=== PATIENT | female | born 1940 | race Caucasian/White ===

== ENCOUNTER 2019-03-12 10:30 | Emergency (ER) | payer MEDICARE, MEDICAID ==
[~2019-03-12] VITALS: Ht 149.9 cm; Wt 32.7 kg
[~2019-03-12 10:30] MED LIST: CALC-839 PO; DOCU100C40 PO; DULR RC; FLUO-1; FLUO-186 PO; IBUP-1985 PO; OLAN2.5T3 PO; OSC500T PO; POLY17PO10 PO; RALO60TA55 PO; TEG100T PO; VAL5T PO; [UNRECOGNIZED DRUG - CODE] RC; [UNRECOGNIZED DRUG - CODE] RIGHT EAR; [UNRECOGNIZED DRUG - CODE] TP
[2019-03-12 11:02] VITALS: BP 133/90
[2019-03-12 11:50] LABS: BASOPHILS % (AUTO) 0.5 % (0-1); EOSINOPHILS % (AUTO) 0.1 % (0-6); HEMATOCRIT 45.2 % (35.0-45.0); HEMOGLOBIN 15.3 g/dl (12.0-16.0); LYMPHOCYTES # (AUTO) 1.5 X10'3 (1.1-4.8); LYMPHOCYTES % (AUTO) 22.5 % (21-51); MEAN CORPUSCULAR HEMOGLOBIN 31.4 PG (27.0-31.0); MEAN CORPUSCULAR HGB CONC 33.9 g/dL (33.0-36.5); MEAN CORPUSCULAR VOLUME 92.7 FL (78-98); MEAN PLATELET VOLUME 7.5 FL (7.4-10.4); MONOCYTES # (AUTO) 0.6 X10'3 (0-0.9); MONOCYTES % (AUTO) 8.5 % (2-12); NEUTROPHILS # (AUTO) 4.5 X10'3 (1.8-7.7); NEUTROPHILS % (AUTO) 68.4 % (42-75); PLATELET COUNT 202 X10'3 (140-440); RED BLOOD COUNT 4.88 X10'6 (4.20-5.60); RED CELL DISTRIBUTION WIDTH 12.6 % (11.5-14.5); WHITE BLOOD COUNT 6.7 X10'3 (4.5-11.0)
[2019-03-12 12:00] LABS: PARTIAL THROMBOPLASTIN TIME 28 SECONDS (22-32)
[2019-03-12 12:15] LABS: ALANINE AMINOTRANSFERASE 23 U/L (12-78); ALBUMIN 3.7 G/DL (3.4-5.0); ALBUMIN/GLOBULIN RATIO 1.1 (1.1-1.5); ALKALINE PHOSPHATASE 115 IU/L (46-116); ANION GAP 5 (8-16); ASPARTATE AMINO TRANSFERASE 19 U/L (10-37); BILIRUBIN,TOTAL 0.3 MG/DL (0.1-1.0); BLOOD UREA NITROGEN 22 MG/DL (7-18); BUN/CREATININE RATIO 31.4 (6.6-38.0); CALCIUM 9.4 MG/DL (8.5-10.1); CHLORIDE 112 MMOL/L (99-107); GLUCOSE 101 MG/DL (70-104); POTASSIUM 3.7 MMOL/L (3.5-5.1); SODIUM 149 MMOL/L (135-145); TOTAL CARBON DIOXIDE 32.3 MMOL/L (24-32); TOTAL PROTEIN 7.2 G/DL (6.4-8.2); eGFR 81 ML/MIN
== END 2019-03-12 15:35 | disposition home or self-care (01) ==
LOC: ER 10:31
DX: E87.0 Hyperosmolality and hypernatremia (principal); F79 Unspecified intellectual disabilities; Z79.899 Other long term (current) drug therapy
CPT/HCPCS: 36415; 80053; 85025; 85610; 85730; 93005; 99284

== ENCOUNTER 2019-07-01 23:38 | Inpatient (IN) | payer MEDICARE, MEDICAID ==
[~2019-07-01] VITALS: Ht 152.4 cm; Wt 37.6 kg
[2019-07-02] MEDS ORDERED: normal saline 1000ML IV soln IV ONE (00:50)
[2019-07-02] MEDS ORDERED: bisacodyl 10mg suppository rectal RC STA (00:52)
[2019-07-02 01:06] LABS: BASOPHILS % (AUTO) 0.2 % (0-1); EOSINOPHILS % (AUTO) 0.1 % (0-6); HEMATOCRIT 36.3 % (35.0-45.0); HEMOGLOBIN 12.8 g/dl (12.0-16.0); LYMPHOCYTES # (AUTO) 0.7 X10'3 (1.1-4.8); LYMPHOCYTES % (AUTO) 7.8 % (21-51); MEAN CORPUSCULAR HEMOGLOBIN 32.7 PG (27.0-31.0); MEAN CORPUSCULAR HGB CONC 35.1 g/dL (33.0-36.5); MONOCYTES # (AUTO) 0.8 X10'3 (0-0.9); MONOCYTES % (AUTO) 8.2 % (2-12); NEUTROPHILS # (AUTO) 7.7 X10'3 (1.8-7.7); NEUTROPHILS % (AUTO) 83.7 % (42-75); PLATELET COUNT 206 X10'3 (140-440); RED CELL DISTRIBUTION WIDTH 12.2 % (11.5-14.5); WHITE BLOOD COUNT 9.2 X10'3 (4.5-11.0)
[2019-07-02 01:14] LABS: ALANINE AMINOTRANSFERASE 15 U/L (12-78); ALBUMIN 3.1 G/DL (3.4-5.0); ALBUMIN/GLOBULIN RATIO 0.9 (1.1-1.5); ALKALINE PHOSPHATASE 100 IU/L (46-116); ANION GAP 4 (8-16); ASPARTATE AMINO TRANSFERASE 17 U/L (10-37); BILIRUBIN,TOTAL 0.1 MG/DL (0.1-1.0); BLOOD UREA NITROGEN 26 MG/DL (7-18); BUN/CREATININE RATIO 43.3 (6.6-38.0); CALCIUM 7.9 MG/DL (8.5-10.1); CHLORIDE 105 MMOL/L (99-107); CREATINE KINASE 46 U/L (26-192); GLUCOSE 86 MG/DL (70-104); POTASSIUM 4.2 MMOL/L (3.5-5.1); SODIUM 139 MMOL/L (135-145); TOTAL CARBON DIOXIDE 30.5 MMOL/L (24-32); TOTAL PROTEIN 6.5 G/DL (6.4-8.2); eGFR > 90 ML/MIN
[2019-07-02] MEDS: mineral oil 133ml enema RC PRN (02:25)
--- NOTE | 2019-07-02 02:42 | NUR ---
PATIENT HAS RECEIVED, DOCULAX SUPPOSITORY AND MINERAL OIL ENEMA. PATIENT HAS HAS SMEAR BM AND WAS UNABLE TO RETAIN THE ENEMA. PATIENT IS RELEASING LARGE AMOUNTS OF FLATUS
[2019-07-02] MEDS ORDERED: SERT25TA PO (03:26)
[2019-07-02] MEDS ORDERED: OMEP40CA13 PO (03:26)
[2019-07-02] MEDS ORDERED: LORA10TA7 PO (03:26)
[2019-07-02] MEDS ORDERED: FERR325T28 PO (03:26)
[2019-07-02] MEDS ORDERED: HYDROcodone/acetaminophen 5mg/325mg tablet PO PRN (04:15)
[2019-07-02] MEDS ORDERED: polyethylene glycol 3350 17gm powd pack PO SCH (04:15)
[2019-07-02] MEDS ORDERED: ondansetron/PF 4mg/2ml inj IV PRN (04:15)
[2019-07-02] MEDS ORDERED: mag hydrox/Alum hydrox/simeth 30ml oral suspension PO PRN (04:15)
--- NOTE | 2019-07-02 05:45 | NUR ---
Received report from Jason HUERTA in the ER. Pt arrived via gurney on 2L O2 with caregiver at bedside. No signs of distress, will continue to monitor.
[2019-07-02 05:56] VITALS: BP 101/59
--- NOTE | 2019-07-02 06:42 | NUR ---
Problems reprioritized. Patient report given, questions answered & plan of care reviewed with Makenzie HUERTA.
--- NOTE | 2019-07-02 06:56 | NUR ---
Patient in room [facility]. I have received report from Marie HUERTA and had the opportunity to ask questions and assume patient care.
[2019-07-02 08:00] VITALS: BP 123/73
[2019-07-02] MEDS: pantoprazole 40mg Tablet.DR PO SCH (09:06)
[2019-07-02] MEDS: docusate sod 100mg capsule PO SCH ×2 (09:06→19:29)
[2019-07-02] MEDS: sertraline 50mg tablet PO SCH (09:07)
[2019-07-02] MEDS: OLANZapine 2.5MG tablet PO SCH (09:07)
[2019-07-02] MEDS: acetaminophen 650mg rectal suppository RC SCH ×3 (09:08→19:29)
[2019-07-02] MEDS: carBAMazepine 100mg chewable tablet PO SCH ×2 (09:09→19:35)
--- NOTE | 2019-07-02 11:59 | NUR ---
Pt with low BMI of 17.1 using scaled weight of 37.2 kg. Per records pt weighed 32.7 kg 03/12/19 using standing scale. No apparent wt loss at this time and pt is 91% IBW. Pt currently on full liquid diet, pending documentation of PO intake. Pt just admitted, pending physical assessment. No edema documented in H&P. Pt developmentally delayed and lives in assisted living per H&P. No concerns for malnutrition at this time. Will continue to follow. Addendum: 07/02/19 at [address] Amended: Links added.
[2019-07-02] MEDS: normal saline 1000ml 1,000 ML IV SCH (13:13)
[2019-07-02] MEDS: magnesium hydroxide 30ml (MOM) UD suspension PO PRN (14:53)
--- NOTE | 2019-07-02 18:06 | NUR ---
caregiver present in room for entire shift. patient appears stable. All cares given .
--- NOTE | 2019-07-02 18:40 | NUR ---
Patient in room [facility]. I have received report from DEANNA Fuchs and had the opportunity to ask questions and assume patient care.
--- NOTE | 2019-07-02 18:43 | NUR ---
Problems reprioritized. Patient report given, questions answered & plan of care reviewed with Jerad HUERTA.
[2019-07-02 19:00] VITALS: BP 136/89
[2019-07-03] VITALS: BP 101/61
[2019-07-03] MEDS: normal saline 1000ml 1,000 ML IV SCH ×3 (02:42→17:28)
[2019-07-03] MEDS: acetaminophen 650mg rectal suppository RC SCH ×4 (02:42→21:43)
[2019-07-03 06:15] LABS: BASOPHILS % (AUTO) 0.6 % (0-1); EOSINOPHILS % (AUTO) 0 % (0-6); HEMATOCRIT 36.9 % (35.0-45.0); HEMOGLOBIN 12.8 g/dl (12.0-16.0); LYMPHOCYTES % (AUTO) 16.3 % (21-51); MEAN CORPUSCULAR HEMOGLOBIN 32.8 PG (27.0-31.0); MEAN CORPUSCULAR HGB CONC 34.6 g/dL (33.0-36.5); MEAN CORPUSCULAR VOLUME 94.8 FL (78-98); MEAN PLATELET VOLUME 7.1 FL (7.4-10.4); MONOCYTES # (AUTO) 0.5 X10'3 (0-0.9); MONOCYTES % (AUTO) 8.3 % (2-12); NEUTROPHILS # (AUTO) 4.6 X10'3 (1.8-7.7); NEUTROPHILS % (AUTO) 74.8 % (42-75); PLATELET COUNT 173 X10'3 (140-440); RED BLOOD COUNT 3.89 X10'6 (4.20-5.60); WHITE BLOOD COUNT 6.2 X10'3 (4.5-11.0)
--- NOTE | 2019-07-03 06:35 | NUR ---
Problems reprioritized. Patient report given, questions answered & plan of care reviewed with DEANNA Fuchs, and DEANNA Feng.
[2019-07-03 06:37] LABS: ALANINE AMINOTRANSFERASE 15 U/L (12-78); ALBUMIN 2.7 G/DL (3.4-5.0); ALBUMIN/GLOBULIN RATIO 0.8 (1.1-1.5); ALKALINE PHOSPHATASE 95 IU/L (46-116); ANION GAP 4 (8-16); ASPARTATE AMINO TRANSFERASE 25 U/L (10-37); BILIRUBIN,TOTAL 0.2 MG/DL (0.1-1.0); BLOOD UREA NITROGEN 10 MG/DL (7-18); BUN/CREATININE RATIO 20.8 (6.6-38.0); CALCIUM 7.8 MG/DL (8.5-10.1); CHLORIDE 109 MMOL/L (99-107); CREATININE 0.48 MG/DL (0.40-0.90); GLUCOSE 80 MG/DL (70-104); POTASSIUM 4.4 MMOL/L (3.5-5.1); SODIUM 141 MMOL/L (135-145); TOTAL CARBON DIOXIDE 27.7 MMOL/L (24-32); TOTAL PROTEIN 5.9 G/DL (6.4-8.2); eGFR > 90 ML/MIN
--- NOTE | 2019-07-03 06:43 | NUR ---
Patient in room [facility]. I have received report from Jerad HUERTA and had the opportunity to ask questions and assume patient care.
[2019-07-03 07:31] VITALS: BP 126/72
[2019-07-03] MEDS: carBAMazepine 100mg chewable tablet PO SCH ×2 (08:00→21:43)
[2019-07-03] MEDS: docusate sod 100mg capsule PO SCH ×2 (09:41→21:42)
[2019-07-03] MEDS: pantoprazole 40mg Tablet.DR PO SCH (09:42)
[2019-07-03] MEDS: sertraline 50mg tablet PO SCH (09:42)
[2019-07-03] MEDS: OLANZapine 2.5MG tablet PO SCH (09:42)
[2019-07-03] MEDS: mineral oil 133ml enema RC PRN (09:53)
--- NOTE | 2019-07-03 11:21 | NUR ---
Spoke with Conservator Elgin over the phone. Elgin stated, "I want to know how the pt is doing because I want her out of the hospital." Explained to Elgin that pt needs to have a bowel movement and may be discharged after that happens. Elgin got very upset and stated, "I will talk to who I need to talk to make a complaint." Tried to ask Elgin if there was something else I could help with and Elgin interrupted and said, "no thanks for the info that you provided." Pt then hung up the phone before anything else could be said. Informed case monitor and charge nurse.
--- NOTE | 2019-07-03 12:30 | NUR ---
Spoke with Corie pereyralive in housekeeper nanny over the phone. [employer] stating she doesnt have staff she is able to send for over the weekend for material handler 2nd shift and would like us to get a sitter order for pt when staff isnt there. Spoke with caregiver at bedside, caregiver stating pt has been trying to crawl out of bed several times today. Nurse has just observed pt sleeping and not trying to get out of bed. Will page MD to get prn sitter order for when Corie pereyra staff unavailable.
[2019-07-03 12:55] VITALS: BP 126/83
--- NOTE | 2019-07-03 18:25 | NUR ---
Problems reprioritized. Patient report given, questions answered & plan of care reviewed with Prudence RN.
[2019-07-03 19:00] VITALS: BP 151/86
[2019-07-03] MEDS: magnesium hydroxide 30ml (MOM) UD suspension PO PRN (21:42)
[2019-07-04] VITALS: BP 143/83
[2019-07-04] MEDS: acetaminophen 650mg rectal suppository RC SCH ×2 (02:53→08:25)
[2019-07-04 05:05] LABS: BASOPHILS % (AUTO) 0.7 % (0-1); EOSINOPHILS % (AUTO) 0 % (0-6); HEMATOCRIT 35.5 % (35.0-45.0); HEMOGLOBIN 12.6 g/dl (12.0-16.0); LYMPHOCYTES # (AUTO) 0.7 X10'3 (1.1-4.8); LYMPHOCYTES % (AUTO) 12.8 % (21-51); MEAN CORPUSCULAR HEMOGLOBIN 32.5 PG (27.0-31.0); MEAN CORPUSCULAR HGB CONC 35.5 g/dL (33.0-36.5); MEAN CORPUSCULAR VOLUME 91.7 FL (78-98); MEAN PLATELET VOLUME 6.8 FL (7.4-10.4); MONOCYTES # (AUTO) 0.4 X10'3 (0-0.9); MONOCYTES % (AUTO) 7.9 % (2-12); NEUTROPHILS # (AUTO) 4.5 X10'3 (1.8-7.7); NEUTROPHILS % (AUTO) 78.6 % (42-75); PLATELET COUNT 212 X10'3 (140-440); RED BLOOD COUNT 3.87 X10'6 (4.20-5.60); WHITE BLOOD COUNT 5.7 X10'3 (4.5-11.0)
[2019-07-04 05:26] LABS: ALANINE AMINOTRANSFERASE 21 U/L (12-78); ALBUMIN 2.8 G/DL (3.4-5.0); ALBUMIN/GLOBULIN RATIO 0.8 (1.1-1.5); ALKALINE PHOSPHATASE 102 IU/L (46-116); ANION GAP 8 (8-16); ASPARTATE AMINO TRANSFERASE 30 U/L (10-37); BILIRUBIN,TOTAL 0.3 MG/DL (0.1-1.0); BLOOD UREA NITROGEN 9 MG/DL (7-18); BUN/CREATININE RATIO 18.4 (6.6-38.0); CALCIUM 7.9 MG/DL (8.5-10.1); CHLORIDE 105 MMOL/L (99-107); CREATININE 0.49 MG/DL (0.40-0.90); GLUCOSE 102 MG/DL (70-104); SODIUM 139 MMOL/L (135-145); TOTAL CARBON DIOXIDE 25.8 MMOL/L (24-32); TOTAL PROTEIN 6.1 G/DL (6.4-8.2); eGFR > 90 ML/MIN
[2019-07-04] MEDS: normal saline 1000ml 1,000 ML IV SCH ×2 (05:52→08:24)
--- NOTE | 2019-07-04 06:30 | NUR ---
Patient in room [facility]. I have received report from Alyssa HUERTA and had the opportunity to ask questions and assume patient care.
--- NOTE | 2019-07-04 06:41 | NUR ---
Problems reprioritized. Patient report given, questions answered & plan of care reviewed with Antionette HUERTA.
[2019-07-04] MEDS: docusate sod 100mg capsule PO SCH ×2 (08:21→19:56)
[2019-07-04] MEDS: pantoprazole 40mg Tablet.DR PO SCH (08:21)
[2019-07-04] MEDS: sertraline 50mg tablet PO SCH (08:21)
[2019-07-04] MEDS: OLANZapine 2.5MG tablet PO SCH (08:22)
[2019-07-04] MEDS: carBAMazepine 100mg chewable tablet PO SCH ×2 (08:25→19:56)
[2019-07-04] MEDS ORDERED: acetaminophen 650mg rectal suppository RC PRN (11:05)
--- NOTE | 2019-07-04 11:09 | NUR ---
Informed that BP this AM was 130/111. No new orders at this time.
--- NOTE | 2019-07-04 11:10 | NUR ---
MD ordered STAT CT of Abdomen after getting occult positive results. cutter grind tool technician stated it would be little while before they can get up here to take pt down on [facility].
[2019-07-04 11:22] VITALS: BP 158/95
[2019-07-04] MEDS ORDERED: diatrozoate meglu/diatrozoate sod (37% iodine) 120ML oral solution ONE (14:32)
[2019-07-04] MEDS ORDERED: iohexol 300mg/ml 100ml inj. ONE (14:34)
[2019-07-04] MEDS ORDERED: methylnaltrexone br 12mg/0.6ml inj***SubQ only SQ SCH (15:39)
[2019-07-04 16:53] LABS: HEMATOCRIT 38.6 % (35.0-45.0); HEMOGLOBIN 13.4 g/dl (12.0-16.0); MEAN CORPUSCULAR HEMOGLOBIN 32.4 PG (27.0-31.0); MEAN CORPUSCULAR HGB CONC 34.7 g/dL (33.0-36.5); MEAN CORPUSCULAR VOLUME 93.3 FL (78-98); MEAN PLATELET VOLUME 6.7 FL (7.4-10.4); PLATELET COUNT 207 X10'3 (140-440); RED BLOOD COUNT 4.13 X10'6 (4.20-5.60); WHITE BLOOD COUNT 5.7 X10'3 (4.5-11.0)
--- NOTE | 2019-07-04 17:00 | NUR ---
Soap suds enema given with no stool results. Patient only had loose watery amount with stool particles in brief. No soft or formed stool seen.
[2019-07-04 18:00] VITALS: BP 130/90
--- NOTE | 2019-07-04 18:04 | NUR ---
Problems reprioritized. Patient report given, questions answered & plan of care reviewed with Prudence RN.
--- NOTE | 2019-07-04 19:16 | NUR ---
Patient in room [facility]. I have received report from Ping HUERTA and had the opportunity to ask questions and assume patient care. Patient has a sitter.
[2019-07-05 00:39] VITALS: BP 155/93
[2019-07-05 06:32] LABS: BASOPHILS # (AUTO) 0.1 X10'3 (0-0.2); BASOPHILS % (AUTO) 0.9 % (0-1); EOSINOPHILS % (AUTO) 0.1 % (0-6); HEMATOCRIT 36.5 % (35.0-45.0); HEMOGLOBIN 12.7 g/dl (12.0-16.0); LYMPHOCYTES # (AUTO) 0.8 X10'3 (1.1-4.8); LYMPHOCYTES % (AUTO) 14.4 % (21-51); MEAN CORPUSCULAR HEMOGLOBIN 32.5 PG (27.0-31.0); MEAN CORPUSCULAR HGB CONC 34.8 g/dL (33.0-36.5); MEAN CORPUSCULAR VOLUME 93.3 FL (78-98); MEAN PLATELET VOLUME 7.1 FL (7.4-10.4); MONOCYTES # (AUTO) 0.5 X10'3 (0-0.9); NEUTROPHILS # (AUTO) 4.1 X10'3 (1.8-7.7); NEUTROPHILS % (AUTO) 74.6 % (42-75); PLATELET COUNT 201 X10'3 (140-440); RED BLOOD COUNT 3.91 X10'6 (4.20-5.60); RED CELL DISTRIBUTION WIDTH 12.1 % (11.5-14.5); WHITE BLOOD COUNT 5.5 X10'3 (4.5-11.0)
--- NOTE | 2019-07-05 06:37 | NUR ---
Problems reprioritized. Patient report given, questions answered & plan of care reviewed with Gisel HUERTA.Patient is resting and has not have a bowel movement yet. Pt passing gas and the abdomen is soft.
--- NOTE | 2019-07-05 06:39 | NUR ---
Patient in room [facility]. I have received report from Alyssa HUERTA and had the opportunity to ask questions and assume patient care.
[2019-07-05 06:50] LABS: ALANINE AMINOTRANSFERASE 18 U/L (12-78); ALBUMIN 2.9 G/DL (3.4-5.0); ALBUMIN/GLOBULIN RATIO 0.9 (1.1-1.5); ALKALINE PHOSPHATASE 97 IU/L (46-116); ANION GAP 8 (8-16); ASPARTATE AMINO TRANSFERASE 29 U/L (10-37); BILIRUBIN,TOTAL 0.3 MG/DL (0.1-1.0); BLOOD UREA NITROGEN 7 MG/DL (7-18); BUN/CREATININE RATIO 18.4 (6.6-38.0); CALCIUM 8.1 MG/DL (8.5-10.1); CHLORIDE 106 MMOL/L (99-107); CREATININE 0.38 MG/DL (0.40-0.90); GLUCOSE 81 MG/DL (70-104); POTASSIUM 3.6 MMOL/L (3.5-5.1); SODIUM 137 MMOL/L (135-145); TOTAL CARBON DIOXIDE 22.6 MMOL/L (24-32); TOTAL PROTEIN 6.2 G/DL (6.4-8.2); eGFR > 90 ML/MIN
[2019-07-05 07:00] VITALS: BP 118/65
[2019-07-05] MEDS: pantoprazole 40mg Tablet.DR PO SCH (09:02)
[2019-07-05] MEDS: docusate sod 100mg capsule PO SCH (09:02)
[2019-07-05] MEDS: sertraline 50mg tablet PO SCH (09:02)
[2019-07-05] MEDS: OLANZapine 2.5MG tablet PO SCH (09:03)
[2019-07-05] MEDS: carBAMazepine 100mg chewable tablet PO SCH ×2 (09:03→19:50)
[2019-07-05 11:00] VITALS: BP 143/82
--- NOTE | 2019-07-05 11:01 | NUR ---
Soap suds enema given, caregiver present at bedside. Patient tolerated well. Small, loose, green stool noted. Dr. Funez notified and also saw the stool
[2019-07-05] MEDS ORDERED: HYDROcodone/acetaminophen 5mg/325mg tablet PO PRN (14:30)
[2019-07-05] MEDS: mineral oil 133ml enema RC SCH (15:22)
--- NOTE | 2019-07-05 18:50 | NUR ---
Patient in room [facility]. I have received report from DEANNA Batres and had the opportunity to ask questions and assume patient care.
--- NOTE | 2019-07-05 18:52 | NUR ---
Problems reprioritized. Patient report given, questions answered & plan of care reviewed with Jerad HUERTA.
[2019-07-05] MEDS ORDERED: magnesium citrate 296ml oral solution PO ONE (19:00)
[2019-07-06 00:33] VITALS: BP 127/75
[2019-07-06] MEDS: normal saline 1000ml 1,000 ML IV SCH ×2 (01:42→22:56)
--- NOTE | 2019-07-06 06:20 | NUR ---
Patient in room [facility]. I have received report from DEANNA Mars and had the opportunity to ask questions and assume patient care.
--- NOTE | 2019-07-06 06:28 | NUR ---
Problems reprioritized. Patient report given, questions answered & plan of care reviewed with DEANNA Layton.
[2019-07-06 06:55] LABS: ALANINE AMINOTRANSFERASE 50 U/L (12-78); ALBUMIN 2.6 G/DL (3.4-5.0); ALBUMIN/GLOBULIN RATIO 0.9 (1.1-1.5); ALKALINE PHOSPHATASE 88 IU/L (46-116); ANION GAP 10 (8-16); ASPARTATE AMINO TRANSFERASE 55 U/L (10-37); BILIRUBIN,TOTAL 0.2 MG/DL (0.1-1.0); BLOOD UREA NITROGEN 11 MG/DL (7-18); BUN/CREATININE RATIO 35.5 (6.6-38.0); CALCIUM 7.5 MG/DL (8.5-10.1); CHLORIDE 109 MMOL/L (99-107); CREATININE 0.31 MG/DL (0.40-0.90); GLUCOSE 71 MG/DL (70-104); POTASSIUM 3.6 MMOL/L (3.5-5.1); SODIUM 143 MMOL/L (135-145); TOTAL CARBON DIOXIDE 24.2 MMOL/L (24-32); TOTAL PROTEIN 5.6 G/DL (6.4-8.2); eGFR > 90 ML/MIN
[2019-07-06 07:00] VITALS: BP 120/72
[2019-07-06 07:15] LABS: BASOPHILS # (AUTO) 0.1 X10'3 (0-0.2); BASOPHILS % (AUTO) 1.5 % (0-1); EOSINOPHILS % (AUTO) 0.1 % (0-6); HEMATOCRIT 36.1 % (35.0-45.0); HEMOGLOBIN 12.8 g/dl (12.0-16.0); LYMPHOCYTES # (AUTO) 0.8 X10'3 (1.1-4.8); LYMPHOCYTES % (AUTO) 19.3 % (21-51); MEAN CORPUSCULAR HEMOGLOBIN 32.4 PG (27.0-31.0); MEAN CORPUSCULAR HGB CONC 35.5 g/dL (33.0-36.5); MEAN CORPUSCULAR VOLUME 91.3 FL (78-98); MEAN PLATELET VOLUME 6.6 FL (7.4-10.4); MONOCYTES # (AUTO) 0.4 X10'3 (0-0.9); MONOCYTES % (AUTO) 10.1 % (2-12); NEUTROPHILS # (AUTO) 2.9 X10'3 (1.8-7.7); PLATELET COUNT 198 X10'3 (140-440); RED BLOOD COUNT 3.95 X10'6 (4.20-5.60); RED CELL DISTRIBUTION WIDTH 11.9 % (11.5-14.5); WHITE BLOOD COUNT 4.2 X10'3 (4.5-11.0)
[2019-07-06] MEDS ORDERED: magnesium citrate 296ml oral solution PO SCH (08:00)
[2019-07-06] MEDS: mineral oil 133ml enema RC SCH (08:00)
[2019-07-06] MEDS: pantoprazole 40mg Tablet.DR PO SCH (08:32)
[2019-07-06] MEDS: carBAMazepine 100mg chewable tablet PO SCH ×2 (08:32→19:25)
[2019-07-06] MEDS: OLANZapine 2.5MG tablet PO SCH (08:32)
[2019-07-06] MEDS: sertraline 50mg tablet PO SCH (08:32)
[2019-07-06 11:00] VITALS: BP 124/70
--- NOTE | 2019-07-06 15:51 | NUR ---
Bolivar trigger, patient has low bolivar score of 12, per [facility] note no current skin issues, skin is intact. Will follow per protocol. Addendum: 07/06/19 at [address] Amended: Links added.
[2019-07-06 18:00] VITALS: BP 157/88
--- NOTE | 2019-07-06 18:14 | NUR ---
Problems reprioritized. Patient report given, questions answered & plan of care reviewed with DEANNA Mars.
--- NOTE | 2019-07-06 18:35 | NUR ---
Patient in room [facility]. I have received report from DEANNA Layton and had the opportunity to ask questions and assume patient care.
[2019-07-06] MEDS: acetaminophen 325mg tablet PO PRN ×2 (22:40→23:44)
[2019-07-07] VITALS: BP 175/98
[2019-07-07 01:12] VITALS: BP 156/94
[2019-07-07 05:37] LABS: BASOPHILS % (AUTO) 0.8 % (0-1); EOSINOPHILS % (AUTO) 0.1 % (0-6); HEMOGLOBIN 13.2 g/dl (12.0-16.0); LYMPHOCYTES # (AUTO) 0.8 X10'3 (1.1-4.8); LYMPHOCYTES % (AUTO) 17.3 % (21-51); MEAN CORPUSCULAR HEMOGLOBIN 32.7 PG (27.0-31.0); MEAN CORPUSCULAR HGB CONC 35.8 g/dL (33.0-36.5); MEAN CORPUSCULAR VOLUME 91.4 FL (78-98); MEAN PLATELET VOLUME 6.4 FL (7.4-10.4); MONOCYTES # (AUTO) 0.5 X10'3 (0-0.9); MONOCYTES % (AUTO) 10.7 % (2-12); NEUTROPHILS # (AUTO) 3.5 X10'3 (1.8-7.7); NEUTROPHILS % (AUTO) 71.1 % (42-75); PLATELET COUNT 223 X10'3 (140-440); RED BLOOD COUNT 4.05 X10'6 (4.20-5.60); RED CELL DISTRIBUTION WIDTH 11.8 % (11.5-14.5); WHITE BLOOD COUNT 4.9 X10'3 (4.5-11.0)
[2019-07-07 05:57] LABS: ALANINE AMINOTRANSFERASE 65 U/L (12-78); ALBUMIN/GLOBULIN RATIO 0.9 (1.1-1.5); ALKALINE PHOSPHATASE 101 IU/L (46-116); ANION GAP 10 (8-16); ASPARTATE AMINO TRANSFERASE 82 U/L (10-37); BILIRUBIN,TOTAL 0.3 MG/DL (0.1-1.0); BLOOD UREA NITROGEN 6 MG/DL (7-18); CALCIUM 7.9 MG/DL (8.5-10.1); CHLORIDE 108 MMOL/L (99-107); CREATININE 0.43 MG/DL (0.40-0.90); GLUCOSE 86 MG/DL (70-104); POTASSIUM 3.3 MMOL/L (3.5-5.1); SODIUM 144 MMOL/L (135-145); TOTAL CARBON DIOXIDE 25.6 MMOL/L (24-32); TOTAL PROTEIN 6.4 G/DL (6.4-8.2); eGFR > 90 ML/MIN
--- NOTE | 2019-07-07 06:35 | NUR ---
Patient in room [facility]. I have received report from DEANNA Mars and had the opportunity to ask questions and assume patient care.
--- NOTE | 2019-07-07 06:35 | NUR ---
Problems reprioritized. Patient report given, questions answered & plan of care reviewed with DEANNA Layton.
[2019-07-07 07:00] VITALS: BP 167/95
[2019-07-07] MEDS: mineral oil 133ml enema RC SCH (07:18)
[2019-07-07] MEDS: sertraline 50mg tablet PO SCH (07:19)
[2019-07-07] MEDS: OLANZapine 2.5MG tablet PO SCH (07:19)
[2019-07-07] MEDS: carBAMazepine 100mg chewable tablet PO SCH (07:19)
[2019-07-07] MEDS: pantoprazole 40mg Tablet.DR PO SCH (07:19)
[2019-07-07] MEDS ORDERED: magnesium 4gm in 100ml NS 100 ML IV PRN (07:35)
[2019-07-07] MEDS ORDERED: magnesium Cl slow-release 64mg tablet PO PRN (07:35)
[2019-07-07] MEDS ORDERED: potassium CL 10mEq/100ml bag 100 ML IV PRN (07:35)
[2019-07-07] MEDS ORDERED: potassium Cl 20 mEq SR tablet PO PRN ×2 (07:35)
[2019-07-07] MEDS ORDERED: potassium Cl 20 mEq SR tablet PO STA (09:06)
--- NOTE | 2019-07-07 10:40 | NUR ---
Initial: Pt was admitted with 11th and 12th rib fractures s/p fall with bloating present. Pt initially NPO with ileus and chronic constipation which is now resolved after receiving heavy bowel care, documented with 11 BMs yesterday. Colace, Relistor, and MoM have been discontinued. Diet has been advanced to clear liquid and pt documented with 100% PO intake. No edema or wounds. No nutrition diagnosis at this time. Will continue to follow. Recommendations: 1) Advance to regular diet as medically indicated 2) Bowel care 3) Wt per rx Addendum: 07/07/19 at [address] Amended: Links added.
[2019-07-07 11:00] VITALS: BP 131/83
--- NOTE | 2019-07-07 15:00 | NUR ---
Patient discharged back to [facility] via respiratory care practitioner and taken from unit via wheelchair with x1 staff. Patient alert and in no apparent distress at time of discharge. Patient PIV removed with cannula intact. Discharge instructions given to and signed by the respiratory care practitioner. She stated an understanding of the instructions and was given time for questions and answers. Patient respiratory care practitioner stated that she needed the discharge signed by the hospitalist in order for the facility to take the patient back. Dr. Mcfadden called regarding this at 1330 and stated that primary nurse could meet her and the hospitalist office at 1430 to have the discharge signed. In addition, patient potassium was 3.[address] Mcfadden stated to give the patient a one time dose of 40 mEq of K-Dur. This was given to the patient prior to discharge.
[2019-07-09 11:14] LABS: OCCULT BLOOD STOOL POSITIVE (Neg)
== END 2019-07-07 14:53 | disposition home or self-care (01) | DRG 184 ==
LOC: ER 23:38 → ED HOLD 07-02 04:37 → EDBEDREQ 07-02 04:56 → CMPBEDREQ 07-02 05:40 → SUR 3N 07-02 05:40 → OBSVTOIN 07-03 08:27 → SUR 3N 07-06 20:42
PROVIDERS: ADMIT Internal Medicine; ATTEND Internal Medicine
DX: S22.42XA Multiple fractures of ribs, left side, initial encounter for closed fracture (principal); K56.7 Ileus, unspecified; K21.9 Gastro-esophageal reflux disease without esophagitis; F41.9 Anxiety disorder, unspecified; M81.0 Age-related osteoporosis without current pathological fracture; K59.09 Other constipation; I25.10 Atherosclerotic heart disease of native coronary artery without angina pectoris; G40.909 Epilepsy, unspecified, not intractable, without status epilepticus; F03.90 Unspecified dementia, unspecified severity, without behavioral disturbance, psychotic disturbance, mood disturbance, and anxiety; F32.9 Major depressive disorder, single episode, unspecified; X58.XXXA Exposure to other specified factors, initial encounter; Y93.89 Activity, other specified; Y92.89 Other specified places as the place of occurrence of the external cause; Y99.8 Other external cause status
CPT/HCPCS: 36415; 71045; 72128; 74150; 74176; 74177; 80053; 80156; 82272; 82550; 83605; 84145; 85025; 85027; 87040; 87081; 99285; G0378; J2212; J7030; Q9963; Q9967